=== PATIENT | female | born 2005 | race Two or more races ===

== ENCOUNTER 2024-11-22 22:37 | Inpatient (IN) | payer OTHER ==
--- NOTE | 2024-11-22 23:32 | ED ---
Psych HPI - General Source: patient, RN notes reviewed Mode of arrival: ambulatory <Mya Ruffin - Last Filed: 11/23/24 02:25> <Abhinav Robertsonah Den - Last Filed: 11/23/24 05:40> - General Chief Complaint: Psychiatric Symptoms Stated Complaint: Psych Time Seen by Provider: 11/22/24 23:28 - History of Present Illness Initial Comments: 19-year-old female presented to the ER for evaluation of suicidal ideations. Patient states she recently moved to the [facility] approximately 1 month ago to live with her father. She moved from [place] after having difficulty maintaining a job due to a work-related injury. Patient reports for the past month she has been living with her father and stepmother. She states she has given all of her money that she has saved to them for living expenses. She has been trying to get a job in the area but has been unsuccessful. Over the past 3 days she has been hanging out with her stepsister and smoking, which angered her father. She states when out with her stepsister her father called her and ord ered her to come home. Upon arriving home, patient and father got into an argument saying he "wanted nothing to do with her". Patient also reports over the past few days she has not had an appetite which was noticed by father who made comment of this. Patient states she has been having a significant decline in her mental health over the past 3 days and she is currently having suicidal ideations. She does hear voices in her head telling her to kill herself. Patient states that she took half a bottle of ibuprofen around 2 or 3 in the afternoon and attempted overdose. She denies any other medications, alcohol or drug use. Patient is not taking any medications for mental health at this time. She denies any fevers, cough, congestion, chest pain, shortness of breath, abdominal pain, constipation/diarrhea, urinary complaints or other complaints at this time. She denies any HI. (Mya Ruffin) - Related Data Allergies Allergy/AdvReac Type Severity Reaction Status Date / Time No Known Allergies Allergy Verified 11/22/24 22:46 Review of Systems ROS Other: All systems not noted in ROS Statement are negative. <Mya Ruffin - Last Filed: 11/23/24 02:25> ROS Other: All systems not noted in ROS Statement are negative. <Abhinav Robertsonah Den - Last Filed: 11/23/24 05:40> ROS Statement: Those systems with pertinent positive or pertinent negative responses have been documented in the HPI. Past Medical History Past Medical History: No Reported History History of Any Multi-Drug Resistant Organisms: None Reported Past Surgical History: No Surgical Hx Reported Past Psychological History: Anxiety, Depression Smoking Status: Never smoker Past Alcohol Use History: None Reported Past Drug Use History: Marijuana <Mya Ruffin - Last Filed: 11/23/24 02:25> General Exam Limitations: no limitations General appearance: alert, in no apparent distress Respiratory exam: Present: normal lung sounds bilaterally. Absent: respiratory distress, wheezes, rales, rhonchi, stridor Cardiovascular Exam: Present: regular rate, normal rhythm, normal heart sounds. Absent: systolic murmur, diastolic murmur, rubs, gallop, clicks GI/Abdominal exam: Present: soft, normal bowel sounds. Absent: distended, tenderness, guarding, rebound, rigid Extremities exam: Present: normal inspection, full ROM, normal capillary refill. Absent: tenderness, pedal edema, joint swelling, calf tenderness Neurological exam: Present: alert, oriented X3, CN II-XII intact Psychiatric exam: Present: anxious, suicidal ideation Skin exam: Present: warm, dry, intact, normal color. Absent: rash <Mya Ruffin - Last Filed: 11/23/24 02:25> Course Vital Signs 11/22/24 11/23/24 11/23/24 22:43 00:45 03:27 Temperature 99.7 F H Pulse Rate 138 H 84 86 Respiratory 20 18 16 Rate Blood Pressure 144/84 117/79 108/64 O2 Sat by Pulse 99 99 98 Oximetry Medical Decision Making - Lab Data Result diagrams: 11/22/24 23:13 11/22/24 23:13 - EKG Data -: EKG Interpreted by Me <Mya Ruffin - Last Filed: 11/23/24 02:25> - Lab Data Result diagrams: 11/22/24 23:13 11/22/24 23:13 <MarceloSuly Den - Last Filed: 11/23/24 05:40> - Medical Decision Making Was pt. sent in by a medical professional or institution (Dr., PA, CHIEF II DISPATCHER, urgent care, hospital, or fpc...) When possible be specific @ -No Did you speak to anyone other than the patient for history (EMS, parent, family, police, friend...)? What history was obtained from this source @ -No Did you review nursing and triage notes (agree or disagree)? Why? @ -I reviewed and agree with nursing and triage notes Were old charts reviewed (outside hosp., previous admission, EMS record, old EKG , old radiological studies, urgent care reports/EKG's, fpc records)? Report findings @ -No old charts were reviewed Differential Diagnosis (chest pain, altered mental status, abdominal pain women, abdominal pain men, vaginal bleeding, weakness, fever, dyspnea, syncope, headache, dizziness, GI bleed, back pain, seizure, CVA, palpatations, mental health, musculoskeletal)? @ -Differential Mental Health: Depression, anxiety, bipolar, psychosis, schizophrenia, borderline personality, situational depression, adjustment disorder, behavioral disorder, brain tumor, malingering, substance abuse, encephalopathy, medication reaction, dementia, hypothyroidism, degenerative neurologic disorder, lupus.... This is not meant to be all-inclusive list EKG interpreted by me (3pts min.). @ -As above X-rays interpreted by me (1pt min.). @ -None done CT interpreted by me (1pt min.). @ -None done U/S interpreted by me (1pt. min.). @ -None done What testing was considered but not performed or refused? (CT, X-rays, U/S, labs)? Why? @ -None What meds were considered but not given or refused? Why? @ -None Did you discuss the management of the patient with other professionals (professionals i.e. ART Rojo, CHIEF II DISPATCHER, lab, RT, psych nurse, older adult social work specialist, senior game designer, teacher, workplace rehabilitation officer, geriatric case manager)? Give summary @ -No Was smoking cessation discussed for >3mins.? @ -No Was critical care preformed (if so, how long)? @ -No Were there social determinants of health that impacted care today? How? (Homelessness, low income, unemployed, alcoholism, drug addiction, transportation, low edu. Level, literacy, decrease access to med. care, assisted, rehab)? @ -Patient recently moved from [place]. Patient living with father. Was there de-escalation of care discussed even if they declined (Discuss DNR or withdrawal of care, Hospice)? DNR status @ -No What co-morbidities impacted this encounter? (DM, HTN, Smoking, COPD, CAD, Cancer, CVA, ARF, Chemo, Hep., AIDS, mental health diagnosis, sleep apnea, morbid obesity)? @ -Mental health Was patient admitted / discharged? Hospital course, mention meds given and route, prescriptions, significant lab abnormalities, going to OR and other pertinent info. @ -19-year-old female presented to the ER for evaluation of suicidal ideations. Patient reports taking half a bottle of ibuprofen around 2 or 3 PM in attempts to overdose. Laboratory studies obtained unremarkable. Salicylates less than 1. Acetaminophen less than 10. Serum alcohol less than 10. UDS unremarkable. hCG negative. EKG sinus rhythm. No acute evidence of infarct or ischemia. Poison control contacted by Leslee STEPHENS. They advised on 6 hour observation and kidney function check at this time. As patient ingested pills around 2 or 3 in the afternoon with normal kidney function at 23:14. Patient medically cleared for EPS evaluation. Undiagnosed new problem with uncertain prognosis? @ -No Drug Therapy requiring intensive monitoring for toxicity (Heparin, Nitro, Insulin, Cardizem)? @ -No Were any procedures done? @ -No Diagnosis/symptom? @ -Default Acute, or Chronic, or Acute on Chronic? @ -Default Uncomplicated (without systemic symptoms) or Complicated (systemic symptoms)? @ -Default Side effects of treatment? @ -No Exacerbation, Progression, or Severe Exacerbation? @ -No Poses a threat to life or bodily function? How? (Chest pain, USA, [place], pneumonia, PE, COPD, DKA, ARF, appy, cholecystitis, CVA, Diverticulitis, Homicidal, Suicidal, threat to staff... and all critical care pts) @ -Yes suicidal ideation (Mya Ruffin) Was patient admitted / discharged? Hospital course, mention meds given and route, prescriptions, significant lab abnormalities, going to OR and other pertinent info. @ -Patient evaluated by EPS. She will be admitted. She is agreeable Undiagnosed new problem with uncertain prognosis? @ -[No] Drug Therapy requiring intensive monitoring for toxicity (Heparin, Nitro, Insulin, Cardizem)? @ -[No] Were any procedures done? @ -[No] Diagnosis/symptom? @ -[default] Acute, or Chronic, or Acute on Chronic? @ -[default] Uncomplicated (without systemic symptoms) or Complicated (systemic symptoms)? @ -[default] Side effects of treatment? @ -[No] Exacerbation, Progression, or Severe Exacerbation? @ -[No] Poses a threat to life or bodily function? How? (Chest pain, USA, [place], pneumonia, PE, COPD, DKA, ARF, appy, cholecystitis, CVA, Diverticulitis, Homicidal, Suicidal, threat to staff... and all critical care pts) @ -[No] (Suly Robertson) - Lab Data Lab Results 11/22/24 11/22/24 11/22/24 Range/Units 23:13 23:13 23:13 WBC 5.4 (4.0-11.0) k/uL RBC 4.29 (3.80-5.40) m/uL Hgb 12.9 (11.4-16.0) gm/dL Hct 39.9 (34.0-46.0) % MCV 93.0 (80.0-100.0) fL MCH 30.0 (25.0-35.0) pg MCHC 32.3 (31.0-37.0) g/dL RDW 13.9 (11.5-15.5) % Plt Count 250 (150-450) k/uL MPV 8.1 Neutrophils % 70 % Lymphocytes % 20 % Monocytes % 7 % Eosinophils % 1 % Basophils % 0 % Neutrophils # 3.8 (1.3-7.7) k/uL Lymphocytes # 1.1 (1.0-4.8) k/uL Monocytes # 0.4 (0-1.0) k/uL Eosinophils # 0.0 (0-0.7) k/uL Basophils # 0.0 (0-0.2) k/uL Sodium 137 (137-145) mmol/L Potassium 4.0 (3.5-5.1) mmol/L Chloride 104 (98-107) mmol/L Carbon Dioxide 20 L (22-30) mmol/L Anion Gap 13 mmol/L BUN 11 (7-17) mg/dL Creatinine 0.76 (0.52-1.04) mg/dL Est GFR (CKD-EPI)AfAm >90 (>60 ml/min/1.73 sqM) Est GFR (CKD-EPI)NonAf >90 (>60 ml/min/1.73 sqM) Glucose 106 H (74-99) mg/dL Plasma Lactic Acid Myles 1.1 (0.7-2.0) mmol/L Calcium 9.7 (8.4-10.2) mg/dL Total Bilirubin 0.6 (0.2-1.3) mg/dL AST 18 (14-36) U/L ALT 13 (4-34) U/L Alkaline Phosphatase 52 (38-126) U/L Total Protein 7.5 (6.3-8.2) g/dL Albumin 4.6 (3.5-5.0) g/dL Urine Color Urine Appearance (Clear) Urine pH (5.0-8.0) Ur Specific [place] (1.001-1.035) Urine Protein (Negative) Urine Glucose (UA) (Negative) Urine Ketones (Negative) Urine Blood (Negative) Urine Nitrite (Negative) Urine Bilirubin (Negative) Urine Urobilinogen (<2.0) mg/dL Ur Leukocyte Esterase (Negative) Urine HCG, Qual (Not Detectd) Salicylates <1.0 mg/dL Urine Opiates Screen (NotDetected) Ur Oxycodone Screen (NotDetected) Urine Methadone Screen (NotDetected) Acetaminophen <10.0 ug/mL Ur Barbiturates Screen (NotDetected) U Tricyclic Antidepress (NotDetected) Ur Phencyclidine Scrn (NotDetected) Ur Amphetamines Screen (NotDetected) U Methamphetamines Scrn (NotDetected) U Benzodiazepines Scrn (NotDetected) Urine Cocaine Screen (NotDetected) U Marijuana (THC) Screen (NotDetected) Serum Alcohol <10 mg/dL 11/23/24 11/23/24 11/23/24 Range/Units 00:13 00:13 04:43 WBC (4.0-11.0) k/uL RBC (3.80-5.40) m/uL Hgb (11.4-16.0) gm/dL Hct (34.0-46.0) % MCV (80.0-100.0) fL MCH (25.0-35.0) pg MCHC (31.0-37.0) g/dL RDW (11.5-15.5) % Plt Count (150-450) k/uL MPV Neutrophils % % Lymphocytes % % Monocytes % % Eosinophils % % Basophils % % Neutrophils # (1.3-7.7) k/uL Lymphocytes # (1.0-4.8) k/uL Monocytes # (0-1.0) k/uL Eosinophils # (0-0.7) k/uL Basophils # (0-0.2) k/uL Sodium (137-145) mmol/L Potassium (3.5-5.1) mmol/L Chloride (98-107) mmol/L Carbon Dioxide (22-30) mmol/L Anion Gap mmol/L BUN (7-17) mg/dL Creatinine (0.52-1.04) mg/dL Est GFR (CKD-EPI)AfAm (>60 ml/min/1.73 sqM) Est GFR (CKD-EPI)NonAf (>60 ml/min/1.73 sqM) Glucose (74-99) mg/dL Plasma Lactic Acid Myles (0.7-2.0) mmol/L Calcium (8.4-10.2) mg/dL Total Bilirubin (0.2-1.3) mg/dL AST (14-36) U/L ALT (4-34) U/L Alkaline Phosphatase (38-126) U/L Total Protein (6.3-8.2) g/dL Albumin (3.5-5.0) g/dL Urine Color Light Yellow Urine Appearance Clear (Clear) Urine pH 5.5 (5.0-8.0) Ur Specific [place] 1.014 (1.001-1.035) Urine Protein Negative (Negative) Urine Glucose (UA) Negative (Negative) Urine Ketones Negative (Negative) Urine Blood Negative (Negative) Urine Nitrite Negative (Negative) Urine Bilirubin Negative (Negative) Urine Urobilinogen <2.0 (<2.0) mg/dL Ur Leukocyte Esterase Negative (Negative) Urine HCG, Qual Not Detected (Not Detectd) Salicylates mg/dL Urine Opiates Screen Not Detected (NotDetected) Ur Oxycodone Screen Not Detected (NotDetected) Urine Methadone Screen Not Detected (NotDetected) Acetaminophen ug/mL Ur Barbiturates Screen Not Detected (NotDetected) U Tricyclic Antidepress Not Detected (NotDetected) Ur Phencyclidine Scrn Not Detected (NotDetected) Ur Amphetamines Screen Not Detected (NotDetected) U Methamphetamines Scrn Not Detected (NotDetected) U Benzodiazepines Scrn Not Detected (NotDetected) Urine Cocaine Screen Not Detected (NotDetected) U Marijuana (THC) Screen Not Detected (NotDetected) Serum Alcohol mg/dL - EKG Data EKG Comments: EKG taken at 23: 50 showing a sinus rhythm. Ventricular rate 72, CO interval 142, QRS duration 90, QT/QTc 385/409. (Mya Ruffin) Disposition <Mya Ruffin - Last Filed: 11/23/24 02:25> Is patient prescribed a controlled substance at d/c from ED?: No Time of Disposition: 05:38 Decision to Admit Reason: Admit from EC Decision Date: 11/23/24 Decision Time: 05:38 <Suly Robertson - Last Filed: 11/23/24 05:40> Clinical Impression: Depression Disposition: ADMITTED IP TO THIS [facility] Condition: Serious Referrals: None,Stated [Primary Care Provider] - 1-2 days
[2024-11-23 00:02] LABS: ALT 13 U/L (4-34); AST 18 U/L (14-36); Acetaminophen <10.0 ug/mL; African American GFR (CKD) >90 (>60 ml/min/1.73 sqM); Albumin 4.6 g/dL (3.5-5.0); Alcohol <10 mg/dL; Alkaline Phosphatase 52 U/L (38-126); Anion Gap 13 mmol/L; Blood Urea Nitrogen 11 mg/dL (7-17); Calcium 9.7 mg/dL (8.4-10.2); Carbon Dioxide 20 mmol/L (22-30); Chloride 104 mmol/L (98-107); Glucose 106 mg/dL (74-99); Non-African American GFR(CKD) >90 (>60 ml/min/1.73 sqM); Salicylate <1.0 mg/dL; Sodium 137 mmol/L (137-145); Total Bilirubin 0.6 mg/dL (0.2-1.3); Total Protein 7.5 g/dL (6.3-8.2)
[2024-11-23 00:10] LABS: Basophils % (A) 0 %; Eosinophils % (A) 1 %; HCT 39.9 % (34.0-46.0); HGB 12.9 gm/dL (11.4-16.0); Lymphocytes # (A) 1.1 k/uL (1.0-4.8); Lymphocytes % (A) 20 %; MCHC 32.3 g/dL (31.0-37.0); Mean Platelet Volume 8.1; Monocytes # (A) 0.4 k/uL (0-1.0); Monocytes % (A) 7 %; Neutrophils # (A) 3.8 k/uL (1.3-7.7); Neutrophils % (A) 70 %; Platelet Count 250 k/uL (150-450); RBC 4.29 m/uL (3.80-5.40); RDW 13.9 % (11.5-15.5); WBC 5.4 k/uL (4.0-11.0)
[2024-11-23 01:18] LABS: Amphetamine Screen,Urine Not Detected (NotDetected); Barbiturate Screen,Urine Not Detected (NotDetected); Benzodiazepines Screen,Urine Not Detected (NotDetected); Cocaine Screen,Urine Not Detected (NotDetected); Methadone Screen, Urine Not Detected (NotDetected); Opiate Screen,Urine Not Detected (NotDetected); Oxycodone Screen, Urine Not Detected (NotDetected); Phencyclidine Screen,Urine Not Detected (NotDetected); Tricyclic Antidepressant,Urine Not Detected (NotDetected); Urn Cannabinoid Scrn Not Detected (NotDetected)
[2024-11-23 04:55] LABS: Appearance,Urine Clear (Clear); Bilirubin,Urine Negative (Negative); Blood,Urine Negative (Negative); Color,Urine Light Yellow; Glucose,Urine (UA) Negative (Negative); Ketones,Urine Negative (Negative); Leukocyte Esterase,Urine Negative (Negative); Nitrite,Urine Negative (Negative); PH, Urine 5.5 (5.0-8.0); Protein,Urine Negative (Negative); Specific Gravity,Urine 1.014 (1.001-1.035); Urobilinogen,Urine <2.0 mg/dL (<2.0)
[2024-11-23] MEDS ORDERED: MAGNESIUM HYDROXIDE 2,400 MG/30 ML CUP PO PRN (06:19)
[2024-11-23] MEDS ORDERED: HALOPERIDOL LACTATE 5 MG/ML 1 ML VIAL IM PRN (06:19)
[2024-11-23] MEDS ORDERED: LORazepam 2 MG/ML INJ IM PRN (06:19)
[2024-11-23] MEDS ORDERED: haloperidoL 5 MG TAB PO PRN (06:19)
[2024-11-23] MEDS ORDERED: MAG HYDROX/AL HYDROX/SIMETH 355 ML BOTTLE PO PRN (06:19)
[2024-11-23] MEDS: NICOTINE 21MG/24HR PATCH TRANSDERM SCH (09:56)
[2024-11-23] MEDS ORDERED: traZODone HCL 50 MG TAB PO PRN (11:52)
[2024-11-23] MEDS: SERTRALINE 25 MG TAB PO SCH (12:19)
[2024-11-23] MEDS: LITHIUM CARBONATE 150 MG CAP PO SCH (12:19)
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
[2024-11-23 13:35] LABS: Chol/HDL Ratio 4.15 Ratio; LDL Cholesterol,Calculated 120.3 mg/dL (0.0-131.0); VLDL Calculation 13.28 mg/dL (5.00-40.00)
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
[2024-11-24] MEDS: ACETAMINOPHEN TAB 325 MG TAB PO PRN (10:39)
--- NOTE | 2024-11-24 11:18 | P.PN ---
Progress Note - Text Progress Note Date: 11/24/24 Interval history: Patient was seen wandering the hallways and was directable and agreeable to s peak with instructional writer. Patient appears to have improvement in eye contact, states that she did not sleep well last night due to her roommate. Claims that she was moved to a different room and is doing better. States that her mood is "a little bit calmer" still endorsing some depression and anxiety. States that her appetite is improving mildly, mildly improving insight and judgment. We spoke more about her medications treatment planning and also side effects to look out for she has several questions. At this time patient denies any suicidal or homicidal ideations intent or plan. Denies any Auditory or visual hallucinations. Patient denies any side effects from the medications and has been compliant with meds. Mental status exam: General Appearance: Patient appears to be tall, wearing glasses, stated age is alert, directable, and cooperative. Behavior: No agitated behavior. Patient is calm and directable attempts to cooperate Speech: Patient's speech is fluent and nonpressured. Mood/Affect: Mood is improving mildly, affect is congruent and constricted. Improving mildly Suicidality/Homicidality: Patient denies having any suicidal or homicidal ideation intent or plan. Perceptions: Patient denies any auditory or visual hallucinations. Though content/process: There is no evidence of any delusional thought content and thought process is linear and goal-directed. Memory and concentration: AOX3, grossly intact for the purposes of this session Judgment and insight: improving mildly Assessment/Plan: Continue with current diagnosis. Patient continues to meet criteria for inpatient psychiatric admission for symptom stabilization and safety. Patient will be maintained on current psychotropic medication regimen, increase Zoloft to 50 mg daily for mood/anxiety. Monitor for medication compliance and for any psychotropic medication side effects. Will continue to monitor ongoing response to treatment. Encouraged participation in milieu.
[2024-11-24] MEDS: IBUPROFEN 600 MG TAB PO PRN (12:45)
[2024-11-25] MEDS: SERTRALINE 50 MG TAB PO SCH (09:00)
[2024-11-25 10:14] VITALS: RESP 16
[2024-11-25 11:12] VITALS: BMI 34.9
--- NOTE | 2024-11-25 13:12 | P.PN ---
Progress Note - Text Progress Note Date: 11/25/24 Interval History: Patient was seen wandering the hallways and was directable and agreeable to sp dixie with engineering technical writer in the office. She states experiencing lightheadedness and dizziness related to heavy menstrual periods. Vitals have been stable and she was encouraged to continue to hydrate. She reports difficulties with sleep overnight however did not take as needed trazodone for sleep. She mentions since being started on lithium she does feel significantly better, goal oriented today. She states she will be discharged to a [facility] as she is unable to return to her father given the issues they have. At this time patient denies any suicidal or homicidal ideations, intent or plan. Patient denies any auditory, visual hallucinations and denies any paranoia or delusions. Patient denies any side effects from the medications and has been compliant with meds. Mental Status Exam: General Appearance: Patient appears to be stated age is alert, directable, and cooperative. She wears glasses and has fair grooming and hygiene Behavior: Patient is calmly seated without any agitated behavior. Speech: Patient's speech is fluent and nonpressured. Mood/Affect: Mood is improving mildly, affect is congruent and constricted. Suicidality/Homicidality: Patient denies having any suicidal or homicidal ideation intent or plan. Perceptions: Patient denies any visual hallucinations and denies any auditory hallucinations Though content/process: There is no evidence of any delusional thought content and thought process is linear and goal-directed. Memory and concentration: AOX3, grossly intact for the purposes of this session Judgment and insight: Improving mildly Assessment Depression unspecified Rule out MDD versus bipolar disorder current episode depressed PTSD Plan: -Patient continues to meet criteria for inpatient psychiatric admission for symptom stabilization and safety. Patient has signed adult voluntary form and medication consent and was placed in patient's chart. -Medications: Continue Zoloft 50 mg daily for mood/PTSD, lithium 150 mg twice daily for mood stabilization/suicidality, start trazodone 50 mg at bedtime for insomnia -When necessary Ativan and Haldol for agitation/aggression. -Labs: WNL -SW on board for discharge planning. Encouraged the patient to participate in milieu. Anticipate discharge to [facility] on Monday pending lithium level
[2024-11-25] MEDS: traZODone HCL 50 MG TAB PO SCH (20:19)
--- NOTE | 2024-11-26 12:36 | P.PN ---
Progress Note - Text Progress Note Date: 11/26/24 Interval History: Patient was seen in group and was directable and agreeable to speak with video game script writer in the office. She reports feeling better in terms of sleep and lightheadedness, feeling as though the previous dizziness was due to medications. She denied any this morning, expressing she has been hydrating. She states speaking to her sister who is supportive and is willing to pick her up tomorrow upon discharge. Patient today was goal oriented, states she has an interview with [facility] and is hopeful to be able to stay there for 18 months to get up on her feet. She reports low depression today, talked about establishing boundaries with her father. At this time patient denies any suicidal or homicidal ideations, intent or plan. Patient denies any auditory, visual hallucinations and denies any paranoia or delusions. Patient denies any side effects from the medications and has been compliant with meds. Mental Status Exam: General Appearance: Patient appears to be stated age is alert, directable, and cooperative. She has fair grooming and hygiene, wears glasses Behavior: Patient is calmly seated without any agitated behavior. Speech: Patient's speech is fluent and nonpressured, talkative. Mood/Affect: Mood is improving mildly, affect is congruent and bright. Suicidality/Homicidality: Patient denies having any suicidal or homicidal ideation intent or plan. Perceptions: Patient denies any visual hallucinations and denies any auditory hallucinations Though content/process: There is no evidence of any delusional thought content and thought process is linear and goal-directed. Memory and concentration: AOX3, grossly intact for the purposes of this session Judgment and insight: Improving mildly Assessment Depression, unspecified Rule out MDD versus bipolar disorder current episode depressed PTSD Plan: -Patient continues to meet criteria for inpatient psychiatric admission for symptom stabilization and safety. Patient has signed adult voluntary form and medication consent and was placed in patient's chart. -Medications: Continue Zoloft 50 mg daily for mood/PTSD, lithium 150 mg twice daily for mood stabilization/suicidality, trazodone 50 mg at bedtime for insomnia -When necessary Ativan and Haldol for agitation/aggression. -Labs: Reviewed, WNL -SW on board for discharge planning. Encouraged the patient to participate in milieu. Anticipate discharge to long term versus apartment tomorrow. Will follow-up with [facility] regarding medication payment given pending insurance application
[2024-11-26] MEDS: LORazepam 1 MG TAB PO PRN (17:57)
[2024-11-26 21:43] VITALS: TEMP 97.9
[2024-11-27 09:32] VITALS: BP 123/75; PULSE 105
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
== END 2024-11-27 12:02 | disposition home or self-care (01) | DRG 881 ==
LOC: EC 22:37 → 3MHU 11-23 05:59
PROVIDERS: ADMIT Psychiatry & Neurology Psychiatry; ATTEND Psychiatry & Neurology Psychiatry
DX: F32.A Depression, unspecified (principal); Z59.01 Sheltered homelessness; R45.851 Suicidal ideations; F12.10 Cannabis abuse, uncomplicated; F43.10 Post-traumatic stress disorder, unspecified; F41.9 Anxiety disorder, unspecified; T39.312D Poisoning by propionic acid derivatives, intentional self-harm, subsequent encounter; G47.00 Insomnia, unspecified; Z56.0 Unemployment, unspecified; Z63.8 Other specified problems related to primary support group; N92.0 Excessive and frequent menstruation with regular cycle
CPT/HCPCS: 36415; 80053; 80061; 80143; 80178; 80179; 80306; 80320; 81003; 81025; 82075; 83036; 83605; 84443; 85025; 87635; 93005; 99285